=== PATIENT | female | born 1970 | race African-American/Black ===

== ENCOUNTER 2018-03-18 14:44 | Emergency (ER) | payer MEDICAID ==
[~2018-03-18] VITALS: Ht 170.2 cm; Wt 103.0 kg
[~2018-03-18 14:44] MED LIST: ATOR10TA PO
[2018-03-18 15:00] VITALS: BP 125/57
== END 2018-03-19 01:44 | disposition left against medical advice (07) ==
LOC: ER 16:28
DX: R50.9 Fever, unspecified (principal)
CPT/HCPCS: 99281